=== PATIENT | female | born 1950 | race Caucasian/White ===

== ENCOUNTER 2016-07-19 08:00 | Outpatient (RCR) | payer MEDICARE, BC | END 2016-07-24 | disposition home or self-care (01) | LOC: PTY 08:00 | DX: M72.2 Plantar fascial fibromatosis (principal); M67.00 Short Achilles tendon (acquired), unspecified ankle; M76.62 Achilles tendinitis, left leg | CPT/HCPCS: 97110; 97161; G8978; G8979 ==

== ENCOUNTER 2016-07-25 07:45 | Outpatient (RCR) | payer MEDICARE, BC | END 2016-08-24 | disposition home or self-care (01) | LOC: PTY 07:45 | DX: M72.2 Plantar fascial fibromatosis (principal); M76.61 Achilles tendinitis, right leg ==

== ENCOUNTER 2016-09-02 07:50 | Outpatient (RCR) | payer MEDICARE, BC | END 2016-09-23 | disposition home or self-care (01) | LOC: PTY 07:50 | DX: M72.2 Plantar fascial fibromatosis (principal); M67.01 Short Achilles tendon (acquired), right ankle | CPT/HCPCS: 97035; 97110; 97140; G8979; G8980 ==